=== PATIENT | male | born 1935 | race Caucasian/White ===

== ENCOUNTER → 2020-06-04 09:17 | Outpatient (BNVA) | payer MEDICARE, SELFPAY | PROVIDERS: PCP Internal Medicine Endocrinology, Diabetes & Metabolism; Referring Provider Internal Medicine Endocrinology, Diabetes & Metabolism; Visit Provider Urology | DX: N40.1 Benign prostatic hyperplasia with lower urinary tract symptoms (principal); N13.8 Other obstructive and reflux uropathy; R35.1 Nocturia | CPT/HCPCS: 99214 ==

== ENCOUNTER 2021-06-07 13:24 | Outpatient (REF) | payer MEDICARE, SELFPAY ==
[2021-06-07 15:00] LABS: Prostate Specific Antigen 4.29 ng/mL (<0.05-4.0)
== END 2021-06-07 13:25 | disposition home or self-care (01) ==
LOC: HO.LAB 13:24
PROVIDERS: PCP Internal Medicine; Visit Provider Urology
DX: Z12.5 Encounter for screening for malignant neoplasm of prostate (principal); N13.8 Other obstructive and reflux uropathy; N40.1 Benign prostatic hyperplasia with lower urinary tract symptoms
CPT/HCPCS: 36415; 84153

== ENCOUNTER → 2021-06-30 11:22 | Outpatient (BNVA) | payer MEDICARE, SELFPAY | PROVIDERS: PCP Internal Medicine; Visit Provider Urology | DX: Z13.89 Encounter for screening for other disorder (principal) | CPT/HCPCS: Q3014 ==

== ENCOUNTER → 2022-07-01 09:15 | Outpatient (BNVA) | payer MEDICARE, SELFPAY | PROVIDERS: PCP Internal Medicine; Visit Provider Urology | DX: N40.1 Benign prostatic hyperplasia with lower urinary tract symptoms (principal); N13.8 Other obstructive and reflux uropathy; R35.1 Nocturia | CPT/HCPCS: 51798; 99212 ==

== ENCOUNTER → 2022-12-28 15:20 | Outpatient (BNVA) | payer MEDICARE, SELFPAY | PROVIDERS: PCP Internal Medicine; Visit Provider Urology | DX: N40.1 Benign prostatic hyperplasia with lower urinary tract symptoms (principal); N13.8 Other obstructive and reflux uropathy; R33.8 Other retention of urine; R97.20 Elevated prostate specific antigen [PSA]; R35.1 Nocturia; Z79.899 Other long term (current) drug therapy | CPT/HCPCS: Q3014 ==

== ENCOUNTER 2023-03-07 13:49 | Outpatient (AMB) | payer MEDICARE, SELFPAY ==
--- NOTE | 2023-03-07 14:04 | MHC.OFFVIS ---
Intake Intake Visit Reasons: 2m/PVR Intake Note: Patient is present for PVR/ Urology Med: Terazosin, Finasteride Antibiotic Allergy: None Blood Thinner: None PVR: 0ml Allergies Tetanus Allergy (Unknown, Uncoded 03/07/23 14:05) Unknown Medication List - Last Reconciled 03/07/23 by Abdelrahman Lovett MD amlodipine 5 mg PO DAILY atenolol 50 mg PO DAILY finasteride 5 mg PO DAILY flu vac 2020 [id number](PF) 60 mcg (15 mcg x 4)/0.5 mL 0.5 mL IM DIRECTED fluticasone propionate 50 mcg/actuation 2 sprays intranasal DAILY terazosin 10 mg PO BEDTIME 90 days tizanidine 2 mg PO Q8H PRN HPI HPI Comments History of Present Illness Details Robbie is a pleasant male. 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 He presents for? further evaluation of elevated PSA. ? Current management is medication with 5AR and alpha viktor ? Laboratory investigations include a free and total PSA evaluation ? Range 5.8-9.3. ? 11/2015 8.0, 12/05 - 4.1, 20%, 06/06 3.9, 06/07 3.9, 06/08 4.6, 06/09 3.1, 06/10 4.3, 06/11 2.6 ? Imaging investigations include? a transrectal ultrasound? Yes ? Prostate Volume? 70 ? Individualized Prostate Cancer Risk Calculator 10% high risk, Would like to continue with observation and understands and accepts the risks of a possible delay in diagnosis,. ? A TRUS biopsy? has? been performed and is negative 2008 ? His current IPSS? IPSS Score? 5 ? Symptoms include 06/06 incomplete emptying, nocturia, x 1, and are improving ? 06/07 , weak stream, nocturia, x 1, and are stable - 06/09? weak stream, nocturia x 2 ? Overall symptoms are mild ? Therapeutic plan will be continued surveillance - remain on combination therapy PFSH Medical History BPH (benign prostatic hyperplasia) Chronic prostatitis HTN (hypertension) Hydrocele Incomplete emptying of bladder Nocturia Prostatism Surgical History History of surgery Review of Systems Const Denies chills and Denies fever(s) Card Reports no additional complaints and Denies syncope Resp Denies cough GI Denies abdominal pain and Denies heartburn Reports as per HPI and Denies change in libido Neuro Denies syncope Psych Denies change in libido Endo Denies change in libido Physical Exam Const General: cooperative, healthy appearing, comfortable and no acute distress Orientation/consciousness: patient oriented x3 HEENT Face and sinus: Yes normal facial exam Mouth: moist mucous membranes Neck Neck: Yes normal visual inspection, Yes full ROM and Yes trachea midline Chest Chest palpation & inspection: normal inspection of the chest Resp Effort & Inspection: normal respiratory effort, able to speak in complete sentences and no respiratory distress GI Inspection: Yes normal to inspection Back/Spine/Pelvis Cervical Spine: normal cervical lordosis Thoracic/Lumbar Spine: thoracic and lumbar spine normal to inspection Skin General skin exam: no rashes or lesions noted Neuro General: patient oriented x3, gait normal, tone normal and moves all extremities Extrem General: Yes normal to inspection and Yes capillary refill normal Office Procedures Post Void Residual Post Residual Void Post Void Residual (PVR): 0 [id number] Void Residual by ultrasound Assessment & Plan Assessment & Plan (1) Nocturia: Code(s): R35.1 - Nocturia (2) BPH w urinary obs/LUTS: Code(s): N40.1 - Benign prostatic hyperplasia with lower urinary tract symptoms; N13.8 - Other obstructive and reflux uropathy Plan Six month follow-up Orders: Orders Prostate Specific Antigen 6 Months R97.20 - Elevated prostate specific antigen [PSA] AMB Post Void Residual by ultrasound Today N13.8 - Other obstructive and reflux uropathy, N40.1 - Benign prostatic hyperplasia with lower urinary tract symptoms Medications: Refilled terazosin 10 mg PO BEDTIME 90 caps 1RF 90 days N13.8 - Other obstructive and reflux uropathy, N40.1 - Benign prostatic hyperplasia with lower urinary tract symptoms Patient Instructions: Imaging studies, laboratory and physical exam results were discussed and reviewed in detail. No major barriers to patient understanding were identified. An opportunity to ask questions regarding the treatment plan was provided. All questions were answered. The patient expressed understanding and agreement with the above treatment plan. The patient is aware they should contact our office by phone for worsening of their current condition or the appearance of new urologic symptoms. Compliance is encouraged with any medications and followup testing that is ordered. It is a privilege to participate in the urologic care of your patient. If you have any questions or concerns regarding treatment for the above conditions, or other urologic issues, please do not hesitate to contact me. The office telephone contact is [phone]. This note is constructed using voice recognition software. While every effort has been made to ensure accuracy info analyst errors may have been included. Yours sincerely, Dr Abdelrahman Lovett MD, [facility] - Urology Providers of Expert, Compassionate Care for the Genitourinary System Coding Level of Care Code Est Pt Level 3 (67692) Diagnoses Nocturia R35.1 BPH w urinary obs/LUTS N40.1; N13.8 CPT Codes Post Residual Void - PVR CPT Code: 21133-Dzis Void Residual by ultrasound ([id number])
== END 2023-03-07 14:34 | disposition home or self-care (01) ==
PROVIDERS: Visit Provider Urology
DX: N40.1 Benign prostatic hyperplasia with lower urinary tract symptoms (principal); R35.1 Nocturia; N13.8 Other obstructive and reflux uropathy
CPT/HCPCS: 99213

== ENCOUNTER → 2023-03-07 13:49 | Outpatient (BNVA) | payer MEDICARE, SELFPAY | PROVIDERS: Visit Provider Urology | DX: N40.1 Benign prostatic hyperplasia with lower urinary tract symptoms (principal); N13.8 Other obstructive and reflux uropathy; R35.1 Nocturia | CPT/HCPCS: 51798; 99212 ==

== ENCOUNTER 2023-09-08 08:10 | Outpatient (AMB) | payer MEDICARE, SELFPAY ==
--- NOTE | 2023-09-08 08:21 | A.OFFVIS_ITS ---
Intake Intake Visit Reasons: 6M PSA(set) Intake Note: Patient is Present for Follow Up PSA Urology Medication: Finasteride, Terazosin Antibiotic Allergies: None Blood Thinners: None PVR: 0ml Allergies Tetanus Allergy (Unknown, Uncoded 09/08/23 08:21) Unknown Medication List - Last Reconciled 09/08/23 by Abdelrahman Lovett MD amlodipine 5 mg PO DAILY atenolol 50 mg PO DAILY finasteride 5 mg PO DAILY flu vac 2020 [id number](PF) 60 mcg (15 mcg x 4)/0.5 mL 0.5 mL IM DIRECTED fluticasone propionate 50 mcg/actuation 2 sprays intranasal DAILY terazosin 10 mg PO BEDTIME 90 days tizanidine 2 mg PO Q8H PRN HPI HPI Comments History of Present Illness Details Robbie is a pleasant male. He is a patient of Dr. Lundberg. He is seen for following urologic conditions - lower urinary tract symptoms - elevated PSA Minimal PVR PSA has dropped Space out to once a year Lower urinary tract symptoms Doing well with urination Nocturia 2-3 suggest trial of afternoon positioning for lower leg drainage ? He presents for? further evaluation of elevated PSA. ? Current management is medication with 5AR and alpha viktor ? Laboratory investigations include a free and total PSA evaluation ? Range 5.8-9.3. ? 11/2015 8.0, 12/05 - 4.1, 20%, 06/06 3.9, 06/07 3.9, 06/08 4.6, 06/09 3.1, 06/10 4.3, 06/11 2.6, 09/13 2.4 ? Imaging investigations include? a transrectal ultrasound? Yes ? Prostate Volume? 70 ? Individualized Prostate Cancer Risk Calculator 10% high risk, Would like to continue with observation and understands and accepts the risks of a possible delay in diagnosis,. ? A TRUS biopsy? has? been performed and is negative 2008 ? His current IPSS? IPSS Score? 5 ? Symptoms include 06/06 incomplete emptying, nocturia, x 1, and are improving ? 06/07 , weak stream, nocturia, x 1, and are stable - 06/09? weak stream, nocturia x 2 ? Overall symptoms are mild ? Therapeutic plan will be continued surveillance - remain on combination therapy PFSH Medical History Prostatism HTN (hypertension) Chronic prostatitis Hydrocele Incomplete emptying of bladder Nocturia BPH (benign prostatic hyperplasia) Surgical History History of surgery Review of Systems Const Denies chills and Denies fever(s) Card Reports no additional complaints and Denies syncope Resp Denies cough GI Denies abdominal pain and Denies heartburn Reports as per HPI and Denies change in libido Neuro Denies syncope Psych Denies change in libido Endo Denies change in libido Physical Exam Const General: cooperative, healthy appearing, comfortable and no acute distress Orientation/consciousness: patient oriented x3 HEENT Face and sinus: Yes normal facial exam Mouth: moist mucous membranes Neck Neck: Yes normal visual inspection, Yes full ROM and Yes trachea midline Chest Chest palpation & inspection: normal inspection of the chest Resp Effort & Inspection: normal respiratory effort, able to speak in complete sentences and no respiratory distress GI Inspection: Yes normal to inspection Back/Spine/Pelvis Cervical Spine: normal cervical lordosis Thoracic/Lumbar Spine: thoracic and lumbar spine normal to inspection Skin General skin exam: no rashes or lesions noted Neuro General: patient oriented x3, gait normal, tone normal and moves all extremities Extrem General: Yes normal to inspection and Yes capillary refill normal Office Procedures Post Void Residual Post Residual Void Post Void Residual (PVR): 0 [id number] Void Residual by ultrasound Assessment & Plan Assessment & Plan (1) Elevated PSA: Code(s): R97.20 - Elevated prostate specific antigen [PSA] (2) Nocturia: Code(s): R35.1 - Nocturia (3) BPH w urinary obs/LUTS: Code(s): N40.1 - Benign prostatic hyperplasia with lower urinary tract symptoms; N13.8 - Other obstructive and reflux uropathy Plan Twelve month follow-up Orders: Orders AMB Post Void Residual by ultrasound Today N13.8 - Other obstructive and reflux uropathy, N40.1 - Benign prostatic hyperplasia with lower urinary tract symptoms Prostate Specific Antigen 364 Days R97.20 - Elevated prostate specific antigen [PSA] Patient Instructions: Imaging studies, laboratory and physical exam results were discussed and reviewed in detail. No major barriers to patient understanding were identified. An opportunity to ask questions regarding the treatment plan was provided. All questions were answered. The patient expressed understanding and agreement with the above treatment plan. The patient is aware they should contact our office by phone for worsening of their current condition or the appearance of new urologic symptoms. Compliance is encouraged with any medications and followup testing that is ordered. It is a privilege to participate in the urologic care of your patient. If you have any questions or concerns regarding treatment for the above conditions, or other urologic issues, please do not hesitate to contact me. The office telephone contact is [phone]. This note is constructed using voice recognition software. While every effort has been made to ensure accuracy care associate errors may have been included. Yours sincerely, Dr Abdelrahman Lovett MD, [facility] - Urology Providers of Expert, Compassionate Care for the Genitourinary System Coding Level of Care Code Est Pt Level 4 (27834) Diagnoses Elevated PSA R97.20 Nocturia R35.1 BPH w urinary obs/LUTS N40.1; N13.8 CPT Codes Post Residual Void - PVR CPT Code: 98030-Dlmz Void Residual by ultrasound ([id number])
== END 2023-09-08 08:57 | disposition home or self-care (01) ==
PROVIDERS: PCP Internal Medicine; Visit Provider Urology
DX: N40.1 Benign prostatic hyperplasia with lower urinary tract symptoms (principal); R97.20 Elevated prostate specific antigen [PSA]; R35.1 Nocturia; N13.8 Other obstructive and reflux uropathy
CPT/HCPCS: 99213

== ENCOUNTER → 2023-09-08 08:10 | Outpatient (BNVA) | payer MEDICARE, SELFPAY | PROVIDERS: PCP Internal Medicine; Visit Provider Urology | DX: N40.1 Benign prostatic hyperplasia with lower urinary tract symptoms (principal); N13.8 Other obstructive and reflux uropathy; R35.1 Nocturia; R97.20 Elevated prostate specific antigen [PSA] | CPT/HCPCS: 51798; 99212 ==

== ENCOUNTER 2024-09-10 08:15 | Outpatient (AMB) | payer MEDICARE, SELFPAY ==
--- NOTE | 2024-09-10 08:32 | MHC.OFFVIS ---
Intake Visit Reasons: 1Y PVR/PSA(set) Intake Note: Patient is Present for 1y Follow Up PSA/PVR Urology Medication: Finasteride, Terazosin Antibiotic Allergies: None Blood Thinners: None PVR: 0ml'S TODAY'S PVR:0ML'S Lace Machine Operator Required: No Allergies Tetanus Allergy (Unknown, Uncoded 09/10/24 08:33) Unknown HPI Comments Details: Robbie is a pleasant male. He is a patient of Dr. Lundberg. He is seen for following urologic conditions - lower urinary tract symptoms - elevated PSA PVR remains low Cut back finasteride to Monday, Monday, Monday Twelve month follow-up Lower urinary tract symptoms Doing well with urination Nocturia 2-3 suggest trial of afternoon positioning for lower leg drainage ? He presents for? further evaluation of elevated PSA. ? Current management is medication with 5AR and alpha viktor ? Laboratory investigations include a free and total PSA evaluation ? Range 5.8-9.3. ? 11/2015 8.0, 12/05 - 4.1, 20%, 06/06 3.9, 06/07 3.9, 06/08 4.6, 06/09 3.1, 06/10 4.3, 06/11 2.6, 09/13 2.4, 09/14 2.4 ? Imaging investigations include? a transrectal ultrasound? Yes ? Prostate Volume? 70 ? Individualized Prostate Cancer Risk Calculator 10% high risk, Would like to continue with observation and understands and accepts the risks of a possible delay in diagnosis,. ? A TRUS biopsy? has? been performed and is negative 2008 ? His current IPSS? IPSS Score? 5 ? Symptoms include 06/06 incomplete emptying, nocturia, x 1, and are improving ? 06/07 , weak stream, nocturia, x 1, and are stable - 06/09? weak stream, nocturia x 2 ? Overall symptoms are mild ? Therapeutic plan will be continued surveillance - remain on combination therapy PFSH Medical History Prostatism HTN (hypertension) Chronic prostatitis Hydrocele Incomplete emptying of bladder Nocturia BPH (benign prostatic hyperplasia) Surgical History History of surgery Review of Systems Const Denies chills and Denies fever(s) Card Reports no additional complaints and Denies syncope Resp Denies cough GI Denies abdominal pain and Denies heartburn Reports as per HPI and Denies change in libido Neuro Denies syncope Psych Denies change in libido Endo Denies change in libido Physical Exam Const General: cooperative, healthy appearing, comfortable and no acute distress Orientation/consciousness: patient oriented x3 HEENT Face and sinus: Yes normal facial exam Mouth: moist mucous membranes Neck Neck: Yes normal visual inspection, Yes full ROM and Yes trachea midline Chest Chest palpation & inspection: normal inspection of the chest Resp Effort & Inspection: normal respiratory effort, able to speak in complete sentences and no respiratory distress GI Inspection: Yes normal to inspection Back/Spine/Pelvis Cervical Spine: normal cervical lordosis Thoracic/Lumbar Spine: thoracic and lumbar spine normal to inspection Skin General skin exam: no rashes or lesions noted Neuro General: patient oriented x3, gait normal, tone normal and moves all extremities Extrem General: Yes normal to inspection and Yes capillary refill normal Office Procedures Post Void Residual Post Residual Void Post Void Residual (PVR): 0 [id number] Void Residual by ultrasound Results AMB Urinalysis, Automated UA Leukoctes 0 Flip/uL Last Edit by RAZIA Guzman on 09/10/24 08:43 UA Nitrite Negative Last Edit by RAZIA Guzman on 09/10/24 08:43 UA Urobilinogen 0.2 mg/dL Last Edit by RAZIA Guzman on 09/10/24 08:43 UA Protein 30 mg/dL Last Edit by RAZIA Guzman on 09/10/24 08:43 UA pH 6.0 Last Edit by RAZIA Guzman on 09/10/24 08:43 UA Blood 0 Alfredito/uL Last Edit by RAZIA Guzman on 09/10/24 08:43 UA Specific [place] 1.015 Last Edit by RAZIA Guzman on 09/10/24 08:43 UA Ketone Positive Last Edit by RAZIA Guzman on 09/10/24 08:43 UA Bilirubin 0 mg/dL Last Edit by RAZIA Guzman on 09/10/24 08:43 UA Glucose 0 mg/dL Last Edit by RAZIA Guzman on 09/10/24 08:43 Results Reviewed Results Reviewed: Laboratory Last Values Urine pH (Auto) 6.0 09/10/24 08:42 Specific [place] (Auto) 1.015 09/10/24 08:42 Urine Protein (Auto) 30 mg/dL 09/10/24 08:42 Glucose (UA)(Auto) 0 mg/dL 09/10/24 08:42 Urine Ketones (Auto) Positive 09/10/24 08:42 Urine Blood (Auto) 0 Alfred[place]/uL 09/10/24 08:42 Urine Nitrite (Auto) Negative 09/10/24 08:42 Urine Bilirubin (Auto) 0 mg/dL 09/10/24 08:42 Urine Urobilinogen (Auto) 0.2 mg/dL 09/10/24 08:42 Leukocyte Esterase (Auto) 0 Flip/uL 09/10/24 08:42 Assessment & Plan Assessment & Plan (1) Elevated PSA: Code(s): R97.20 - Elevated prostate specific antigen [PSA] Category: Medical (2) BPH w urinary obs/LUTS: Code(s): N40.1 - Benign prostatic hyperplasia with lower urinary tract symptoms; N13.8 - Other obstructive and reflux uropathy Category: Medical Plan Twelve month follow-up PSA Orders: Orders Prostate Specific Antigen 364 Days R97.20 - Elevated prostate specific antigen [PSA] AMB Urinalysis Automated Today Z13.9 - Encounter for screening, unspecified Patient Instructions: Imaging studies, laboratory and physical exam results were discussed and reviewed in detail. No major barriers to patient understanding were identified. An opportunity to ask questions regarding the treatment plan was provided. All questions were answered. The patient expressed understanding and agreement with the above treatment plan. The patient is aware they should contact our office by phone for worsening of their current condition or the appearance of new urologic symptoms. Compliance is encouraged with any medications and followup testing that is ordered. It is a privilege to participate in the urologic care of your patient. If you have any questions or concerns regarding treatment for the above conditions, or other urologic issues, please do not hesitate to contact me. The office telephone contact is [phone]. This note is constructed using voice recognition software. While every effort has been made to ensure accuracy heavy machinery operator errors may have been included. Yours sincerely, Dr Abdelrahman Lovett MD, [facility] - Urology Providers of Expert, Compassionate Care for the Genitourinary System Coding Level of Care Code Est Pt Level 4 (02852) Diagnoses Elevated PSA R97.20 BPH w urinary obs/LUTS N40.1; N13.8 CPT Codes Post Residual Void - PVR CPT Code: 42862-Kowb Void Residual by ultrasound ([id number])
== END 2024-09-10 08:59 | disposition home or self-care (01) ==
PROVIDERS: PCP Internal Medicine; Visit Provider Urology
DX: R97.20 Elevated prostate specific antigen [PSA] (principal); N40.1 Benign prostatic hyperplasia with lower urinary tract symptoms; N13.8 Other obstructive and reflux uropathy; Z13.9 Encounter for screening, unspecified
CPT/HCPCS: 99214

== ENCOUNTER → 2024-09-10 08:15 | Outpatient (BNVA) | payer MEDICARE, SELFPAY | PROVIDERS: PCP Internal Medicine; Visit Provider Urology | DX: N40.1 Benign prostatic hyperplasia with lower urinary tract symptoms (principal); N13.8 Other obstructive and reflux uropathy; R97.20 Elevated prostate specific antigen [PSA] | CPT/HCPCS: 51798; 81003; 99212 ==